=== PATIENT | female | born 1965 | race Two or more races ===

== ENCOUNTER 2020-07-05 10:25 | Emergency (ER) | payer MEDICAID ==
[~2020-07-05] VITALS: Ht 152.4 cm; Wt 61.2 kg
[~2020-07-05 10:25] MED LIST: IBUPROFEN600 M1 ORAL; ONDANSETRON ODT4 MG BC
[2020-07-05 10:36] VITALS: BP 115/74
--- NOTE | 2020-07-05 10:37 | NUR ---
ED Nurse Note:pt. c/o right shoulder pain radiating to her neck for 2 months
[2020-07-05] MEDS ORDERED: Ketorolac 30mg Inj IM ONE (10:45)
[2020-07-05] MEDS ORDERED: Methocarbamol 750mg tab ORAL ONE (10:45)
[2020-07-05] MEDS ORDERED: IBUPROFEN600 M1 ORAL (10:57)
[2020-07-05] MEDS ORDERED: LIDODERM700 M1 TOPIC (10:57)
[2020-07-05] MEDS ORDERED: ROBAXIN-750750 MG PO (10:57)
[2020-07-05 11:00] VITALS: BP 115/74
--- NOTE | 2020-07-05 11:00 | NUR ---
ER DISCHARGE NOTE: Patient is cleared to be discharged per ERMD, pt is aox4, on room air, with stable vital signs. pt reports improvement of pain. she was given dc and prescription instructions, pt was able to verbalize understanding, pt id band removed without complications. pt is able to ambulate with steady gait. pt took all belongings.
--- NOTE | 2020-07-06 14:50 | Emergency Room Report ---
History of Present Illness General Chief Complaint: Pain Source: Patient Present Illness HPI 55-year-old female presents complaining of right-sided neck and shoulder pain for the last few months. Throbbing, 6 out of 10, nonradiating. Denies neck stiffness. Denies any fall or injury. No other aggravating relieving factors. Denies any other associated symptoms Allergies: Coded Allergies: TETRACYCLINES (Verified Allergy, Unknown, 04/27/20) COVID-19 Screening Contact w/high risk pt: No Experienced COVID-19 symptoms?: No COVID-19 Testing performed CHEMICAL LABORATORY CHIEF: No Patient History Past Medical History: none Past Surgical History: none Pertinent Family History: none Social History: Denies: smoking, alcohol use, drug use Now: No Immunizations: UTD Reviewed Nursing Documentation: PMH: Agreed; PSxH: Agreed Nursing Documentation-PMH Past Medical History: No Stated History Review of Systems All Other Systems: negative except mentioned in HPI Physical Exam Vital Signs Date Time Temp Pulse Resp B/P (MAP) Pulse Ox O2 Delivery O2 Flow Rate FiO2 07/05/20 10:30 97.5 75 16 115/74 (88) 99 Room Air Sp02 EP Interpretation: reviewed, normal General Appearance: no apparent distress, alert, GCS 15, non-toxic Head: normocephalic, atraumatic Eyes: bilateral eye normal inspection, bilateral eye PERRL ENT: hearing grossly normal, normal pharynx, no angioedema, normal voice Neck: full range of motion, no bony tend, supple/symm/no masses, tender lateral Respiratory: chest non-tender, lungs clear, normal breath sounds, speaking full sentences Cardiovascular #1: regular rate, rhythm, no edema Cardiovascular #2: 2+ carotid (R), 2+ carotid (L), 2+ radial (R), 2+ radial (L), 2+ dorsalis pedis (R), 2+ dorsalis pedis (L) Gastrointestinal: normal bowel sounds, non tender, soft, non-distended, no guarding, no rebound Rectal: deferred Genitourinary: normal inspection, no CVA tenderness Musculoskeletal: back normal, normal range of motion, gait/station normal, tender - TTP over R trapezius. full ROM noted R shoulder Neurologic: alert, motor strength/tone normal, oriented x3, sensory intact, responsive, speech normal Psychiatric: judgement/insight normal, memory normal, mood/affect normal, no suicidal/homicidal ideation Reflexes: 3+ bicep (R), 3+ bicep (L), 3+ tricep (R), 3+ tricep (L), 3+ knee (R), 3+ knee (L) Skin: no rash Lymphatic: no adenopathy Medical Decision Making Diagnostic Impression: Primary Impression: Shoulder strain Qualified Codes: S46.911A - Strain of unspecified muscle, fascia and tendon at shoulder and upper arm level, right arm, initial encounter ER Course Hospital Course 55-year-old female presents ED complaining of R-sided neck pain and shoulder pain Differential diagnoses include: neck strain, shoulder strain, dislocation/fracture Clinical course Patient placed on stretcher. After initial history and physical exam reveals middle-aged female in no acute distress. On exam there is no midline neck tenderness. Full range of motion to the shoulder. There is pain over the R trapezius. Consistent with a neck strain/shoulder strain Discussed findings with patient. Pain is muscular. No signs of trauma. There is limited utility and x-rays. Patient agrees. Given Toradol, Robaxin, Lidoderm in ED. Safe for discharge with close outpatient follow-up. I will provide referrals Diagnosis - shoulder strain Stable and discharged to home with prescription for Motrin, robaxinl lidoderm. Followup with PMD. Return to ED if symptoms recur or worsen Last Vital Signs Date Time Temp Pulse Resp B/P (MAP) Pulse Ox O2 Delivery O2 Flow Rate FiO2 07/05/20 11:00 97.5 75 16 115/74 99 Room Air Status: improved Disposition: HOME, SELF-CARE Condition: Stable Scripts Lidocaine Patch* (Lidoderm Patch*) 1 Each Adh..patch 1 PATCH TOPIC DAILY, #7 PATCH 0 Refills Patch(es) may remain in place for up to 12 hours in any 24-hour period. Prov: Willie Tran MD 07/05/20 Methocarbamol* (ROBAXIN-750*) 750 Mg Tablet 750 MG PO TID, #21 TAB 0 Refills Prov: Willie Tran MD 07/05/20 Ibuprofen* (MOTRIN*) 600 Mg Tablet 600 MG ORAL Q8H PRN for FOR PAIN, #30 TAB 0 Refills Prov: Willie Tran MD 07/05/20 Referrals: NOT CHOSEN IPA/,REFERRING (PCP) Shefali Jansen Comp. [facility] Open 24 hour /7 days a week by Appointment Only [address] [id number] [facility] [place] Patient Instructions: Shoulder Sprain Willie Tran MD Jul 06, 2020 14:50
== END 2020-07-05 11:00 | disposition home or self-care (01) ==
LOC: EMR 10:40
DX: S46.911A Strain of unspecified muscle, fascia and tendon at shoulder and upper arm level, right arm, initial encounter (principal); Z88.1 Allergy status to other antibiotic agents; X58.XXXA Exposure to other specified factors, initial encounter; Y93.9 Activity, unspecified; Y92.9 Unspecified place or not applicable
CPT/HCPCS: 96372; J1885; Z7502; 99283